=== PATIENT | female | born 1975 | race Hispanic/Latino ===

== ENCOUNTER 2020-07-06 12:22 | Emergency (ER) | payer OTHER ==
--- NOTE | 2020-07-06 13:37 | Event Note ---
ED Screening Note Date of service: 07/06/20 Time: 13:34 ED Screening Note: 44-year-old female presents to the ER today with complaints of left flank/left abdominal pain which radiates into her chest arms and legs. Onset 10 AM this morning with associated nausea vomiting and urinary frequency. This initial assessment/diagnostic orders/clinical plan/treatment(s) is/are subject to change based on patients health status, clinical progression and re- assessment by fellow clinical providers in the ED. Further treatment and workup at subsequent clinical providers discretion. Patient/guardian urged not to elope from the ED as their condition may be serious if not clinically assessed and managed. Initial orders include: Labs/x-ray/EKG
[2020-07-06 14:46] LABS: Basophils % (Auto) 0.3 % (0.0-1.8); Eosinophils % (Auto) 0.3 % (0.0-4.3); Hemoglobin 7.7 gm/dl (10.1-14.3); Lymphocytes % (Auto) 7.3 % (13.4-35.0); Mean Corpuscular HGB Conc 31 % (30-34); Mean Corpuscular Volume 76 fl (79-97); Monocytes # (Auto) 0.6 K/mm3 (0.0-0.8); Monocytes % (Auto) 4.2 % (0.0-7.3); Platelet Count 310 K/mm3 (140-440); Red Blood Count 3.29 M/mm3 (3.65-5.03)
[2020-07-06 14:52] LABS: Alanine Aminotransferase 14 units/L (7-56); Albumin 2.8 g/dL (3.9-5); Blood Urea Nitrogen 7 mg/dL (7-17); Calcium 7.5 mg/dL (8.4-10.2); Hemolysis Index 0
[2020-07-06 14:53] LABS: BUN/Creatinine Ratio 14
[2020-07-06 15:05] LABS: Red Cell Distribution Width 20.1 % (13.2-15.2)
--- NOTE | 2020-07-06 15:15 | XRay Report ---
XR chest routine 2V INDICATION / CLINICAL INFORMATION: Chest Pain. COMPARISON: None available. FINDINGS: SUPPORT DEVICES: None. HEART /PULMONARY VASCULATURE: Cardiac silhouette is enlarged without significant pulmonary vasculatur e congestion. LUNGS / PLEURA: No significant pulmonary or pleural abnormality. No pneumothorax. ADDITIONAL FINDINGS: No significant additional findings. IMPRESSION: Mild cardiac enlargement without overt failure or other acute chest process. Signer Name: Solomon Gordon MD Signed: 07/06/2020 3:11 PM Workstation Name: [id number]
[2020-07-06 17:16] LABS: Bacteria,Urine 1+ /HPF (Negative); Bilirubin,Urine NEG (Negative); Blood,Urine MOD (Negative); Color,Urine Yellow (Yellow); Mucus,Urine FEW /HPF; Protein,Urine <15 mg/dL mg/dL (Negative); Urobilinogen,Urine < 2.0 mg/dL (<2.0)
[2020-07-06 17:23] LABS: Amphetamine Screen,Urine Negative; Benzodiazepines Screen,Urine Negative; Cocaine Screen,Urine Negative; Methadone Screen,Urine Negative; Opiate Screen,Urine Negative
[2020-07-06 17:35] LABS: Cannabinoid Screen,Urine Positive
[2020-07-06] MEDS ORDERED: SODIUM CHLORIDE 0.9% 1000 ML 1,000 ML IV ONE (18:11)
[2020-07-06] MEDS ORDERED: HYOSCYAMINE SUBL 0.125 MG TAB SL ONE (18:12)
--- NOTE | 2020-07-06 18:21 | Emergency Department Report ---
ED Abdominal Pain HPI - General Chief Complaint: Chest Pain Stated Complaint: CHEST PAIN/VOMITING PUI?: Yes Time Seen by Provider: 07/06/20 18:10 Source: patient Mode of arrival: Ambulatory Limitations: No Limitations - History of Present Illness Initial Comments: 44-year-old obese female presents emerged department complaining of pain to the left flank region associated with nausea and and vomiting cyclic episodes of an unknown etiology. She does admit to cannabis usage but is not feel it is is related to her symptoms. She reports no known sick contacts no palliative or provocative factors no association with food was travel. She reports no hemoptysis no hematemesis hematochezia. Pain is dull crampy and th robbing. MD Complaint: abdominal pain -: Gradual Location: LUQ, L flank Radiation: none Quality: cramping, aching Consistency: constant Associated Symptoms: nausea, vomiting (Several vomiting episodes since starting this morning spontaneously). denies: diarrhea, fever, chills, constipation, dysuria, hematemesis, hematochezia, melena, hematuria, anorexia, syncope - Related Data Previous Rx's Medication Instructions Recorded Last Taken Type Hyoscyamine Subl [Levsin Sl 0.125 0.25 mg SL ONCE #20 tablet 07/06/20 Unknown Rx TAB] Ondansetron [Zofran Odt] 4 mg PO Q8HR #20 tab.rapdis 07/06/20 Unknown Rx Ketorolac [Toradol] 10 mg PO Q6H PRN #20 tablet 07/07/20 Unknown Rx Sulfamethoxazole/Trimethoprim 1 each PO BID #14 tablet 07/07/20 Unknown Rx [Bactrim DS TAB] Tamsulosin [Flomax] 0.4 mg PO QDAY #7 cap 07/07/20 Unknown Rx Allergies Allergy/AdvReac Type Severity Reaction Status Date / Time morphine Allergy Unknown Verified 07/06/20 13:06 ED Review of Systems ROS: Stated complaint: CHEST PAIN/VOMITING Other details as noted in HPI Comment: All other systems reviewed and negative ED Past Medical Hx - Past Medical History Previous Medical History?: No - Surgical History Past Surgical History?: No - Medications Home Medications: Home Medications Medication Instructions Recorded Confirmed Last Taken Type Hyoscyamine Subl [Levsin Sl 0.125 0.25 mg SL ONCE #20 tablet 07/06/20 Unknown Rx TAB] Ondansetron [Zofran Odt] 4 mg PO Q8HR #20 tab.rapdis 07/06/20 Unknown Rx Ketorolac [Toradol] 10 mg PO Q6H PRN #20 tablet 07/07/20 Unknown Rx Sulfamethoxazole/Trimethoprim 1 each PO BID #14 tablet 07/07/20 Unknown Rx [Bactrim DS TAB] Tamsulosin [Flomax] 0.4 mg PO QDAY #7 cap 07/07/20 Unknown Rx ED Physical Exam - General Limitations: No Limitations General appearance: alert, in no apparent distress - Head Head exam: Present: atraumatic, normocephalic - Eye Eye exam: Present: normal appearance, PERRL, EOMI Pupils: Present: normal accommodation - ENT ENT exam: Present: normal exam, normal orophraynx, mucous membranes moist - Neck Neck exam: Present: normal inspection, full ROM - Respiratory Respiratory exam: Present: normal lung sounds bilaterally. Absent: respiratory distress - Cardiovascular Cardiovascular Exam: Present: regular rate, normal rhythm. Absent: bradycardia, tachycardia, systolic murmur, diastolic murmur, rubs, gallop - GI/Abdominal GI/Abdominal exam: Present: soft, tenderness (For the left upper quadrant left flank), normal bowel sounds. Absent: guarding, hyperactive bowel sounds, hypoactive bowel sounds, organomegaly - Extremities Exam Extremities exam: Present: normal inspection - Back Exam Back exam: Present: normal inspection - Neurological Exam Neurological exam: Present: alert, oriented X3 - Psychiatric Psychiatric exam: Present: normal affect, normal mood - Skin Skin exam: Present: warm, dry, intact, normal color. Absent: rash ED Course Vital Signs 07/06/20 07/06/20 07/07/20 13:09 22:22 01:05 Temperature 97.6 F Pulse Rate 69 72 Respiratory 22 16 Rate Blood Pressure 133/59 Blood Pressure 195/114 111/58 [Left] O2 Sat by Pulse 100 100 Oximetry ED Medical Decision Making - Lab Data Result diagrams: 07/06/20 13:41 07/06/20 13:41 Critical care attestation.: If time is entered above; I have spent that time in minutes in the direct care of this critically ill patient, excluding procedure time. ED Disposition Clinical Impression: Chest pain, Cannabinoid hyperemesis syndrome, Renal and ureteric calculus Disposition: -01 TO HOME OR SELFCARE Is pt being admited?: No Does the pt Need Aspirin: No Condition: Stable Instructions: Cannabis Use Disorder, Kidney Stones, Mcmx-uo-Lkic, Nonspecific Chest Pain, Adult, Lithotripsy, Laser Therapy for Kidney Stones Additional Instructions: What is cannabis hyperemesis syndrome? CHS is caused by cannabis use. Its characterized by: recurrent vomiting nausea abdominal pain Compulsive bathing or showering in hot water to soothe nausea is also a hallmark sign of CHS. CHS is a newly discovered condition. It wasnt described in scientific literature until 2004. But a 2019 study concluded that it potentially accounts for up to 6 percent of emergency room visits for recurrent vomiting. Research suggests that CHS is a permanent condition that can only be effectively treated by quitting cannabis. Continuing to use cannabis despite CHS can lead to potentially life threatening complications. What causes cannabis hyperemesis syndrome? Regular, long-term cannabis use is the only known cause of CHS. A 2017 review of studies found that 97.4 percent of people who developed CHS reported using cannabis at least weekly. About 75 percent reported using cannabis regularly for over a year. Its thought that genetics may play a role because only a small number of people who regularly use cannabis develop CHS. One theory behind CHS is that chronic overstimulation of the bodys endocannabinoid receptors leads to your body not being able to control nausea and vomiting. ADVERTISEMENT What are the symptoms of cannabis hyperemesis syndrome? CHS is divided into three phases depending on the symptoms. Prodromal phase The prodromal phase can last for months, or even years in some cases. Symptoms are most common in early middle-aged adults who have used cannabis regularly since adolescence. Symptoms can include: abdominal discomfort fear of vomiting chief passenger ship steward/stewardess nausea Vomiting is absent in this stage. Hyperemetic phase The hyperemetic phase is characterized by reoccurring and often overwhelming nausea and vomiting. Other symptoms can include: dry heaving decreased food intake food aversions anxiety white, watery secretions in vomit from lack of solid food abdominal pain weight loss dehydration compulsive bathing with hot water to ease symptoms Recovery phase After stopping cannabis use, symptoms generally resolve within days or months. Reusing cannabis again often leads to a reoccurrence of CHS. How common is cannabis hyperemesis syndrome? Its still widely unknown how common CHS is or why it only develops in some people. Many researchers feel that CHS is underrecognized and underdiagnosed. Symptoms of CHS can resemble those of other conditions, such as cyclic vomiting syndrome. Cannabis is still illegal in many states and countries, so people in these areas may be hesitant to tell their doctor about their cannabis use. Estimated impact In one 2018 study, a group of researchers surveyed 2,127 [place] adults between the ages of 18 and 49 at an emergency department in [place]. Of those surveyed, 155 met the criteria of smoking cannabis at least 20 days per month. The researchers found that 32.9 percent of the participants reported having experienced symptoms of CHS in the past. Using these results, researchers estimated that approximately 2.75 million [place] adults may deal with CHS each year. However, much more research needs to be done to fully understand how often CHS occurs. How is cannabis hyperemesis syndrome treated? Researchers are continuing to examine potential treatment options for CHS. As of now, there are no standard treatment guidelines. Stopping cannabis use is the only known way to permanently get rid of CHS. Symptoms may persist 10 days or more after quitting. Relief from symptoms Many people experience temporary relief from their nausea and vomiting when bathing in hot water. Some people with CHS may compulsively bathe in hot water for hours a day to find relief. Your doctor may recommend a number of other treatments to alleviate your symptoms along with quitting cannabis, such as: Capsaicin cream. A few small case studies found that topical capsaicin may help manage symptoms. Antipsychotics. Antipsychotic medications, such as haloperidol or olanzapine, have provided people relief in some studies. Antihistamines. Benadryl and other antihistamines may be somewhat effective, but research is mixed. Intravenous (IV) solutions. If you become severely dehydrated or cant handle oral fluid, you may need IV hydration. Pain-relieving medications. If your symptoms are accompanied by abdominal pain, your doctor may prescribe or recommend pain-relieving medication. Keep in mind none of these treatments will be effective if you continue using cannabis products. ADVERTISEMENT What happens if cannabis hyperemesis syndrome is left untreated? More research needs to be done to understand the long-term effects of CHS. However, chronic vomiting caused by CHS can lead to a number of potentially serious complications, such as: dehydration tooth decay malnutrition electrolyte imbalances esophagus inflammation (esophagitis) Sharon-Henson syndrome CHS-related deaths A 2016 case study describes two deaths due to complications of CHS. The cause of in both people was found to be hyponatremic dehydration, also known as low sodium levels. Can CBD products without THC cause cannabis hyperemesis syndrome? Even cannabis products that dont contain THC have the potential to cause or worsen CHS. Its still not clear which of the more than 100 cannabinoids found in cannabis are responsible for CHS, but its thought that CBD could potentially be a contributor. Until theres more research, CBD shouldnt be considered safe for people with CHS. Takeaway CHS is a condition caused by chronic and repeated cannabis use that leads to severe nausea and vomiting. Theres still a lot about this condition that researchers dont know, including how common it is and why it occurs in some people but not others. At this time, the only known way to cure CHS is by quitting cannabis Prescriptions: Sulfamethoxazole/Trimethoprim [Bactrim DS TAB] 1 each PO BID #14 tablet Tamsulosin [Flomax] 0.4 mg PO QDAY #7 cap Hyoscyamine Subl [Levsin Sl 0.125 TAB] 0.25 mg SL ONCE #20 tablet Ketorolac [Toradol] 10 mg PO Q6H PRN #20 tablet PRN Reason: Pain Ondansetron [Zofran Odt] 4 mg PO Q8HR #20 tab.rapdis Referrals: PRIMARY CAREMD [Primary Care Provider] - 3-5 Days OSMAR WOMACK MD [Staff Physician] - 3-5 Days
[2020-07-06] MEDS: ONDANSETRON 4 MG/2 ML INJ IV STA ×2 (18:42→20:31)
--- NOTE | 2020-07-06 18:53 | Cat Scan Report ---
CT ABDOMEN AND PELVIS WITH CONTRAST INDICATION / CLINICAL INFORMATION: Pain TECHNIQUE: Axial CT images were obtained through the abdomen and pelvis after IV contrast. All CT sc ans at this location are performed using CT dose reduction for ALARA by means of automated exposure c ontrol. COMPARISON: None available. FINDINGS: LOWER CHEST: No significant abnormality LIVER: No significant abnormality GALLBLADDER/BILIARY TREE: Cholecystectomy. PANCREAS: No significant abnormality SPLEEN: No significant abnormality ADRENALS: No significant abnormality KIDNEYS / URETER: 1.1 cm calcification is present at the left UPJ with mild left hydronephrosis, rela tively delayed enhancement of the left kidney, and left perinephric stranding. Bilateral renal cysts. No solid renal mass. URINARY BLADDER: Bladder is decompressed, limiting further evaluation. REPRODUCTIVE ORGANS: No significant abnormality STOMACH / SMALL BOWEL: Stomach and small bowel are normal in caliber. No evidence of bowel inflammati on. COLON: The colon is unremarkable. The appendix is normal in caliber. LYMPH NODES: No significant adenopathy. VASCULATURE: No significant abnormality. OTHER: No free air, free fluid, or focal fluid collection is identified. 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 No acute process. IMPRESSION: 1. 1.1 cm left UPJ calculus with mild/moderate obstructive uropathy. 2. Other incidental findings as above. Signer Name: Solomon Gordon MD Signed: 07/06/2020 6:48 PM Workstation Name: [id number]
[2020-07-06] MEDS ORDERED: KETOROLAC 30 MG/1 ML INJ IV STA (20:20)
[2020-07-06] MEDS ORDERED: ONDANSETRON 4 MG/2 ML INJ ONE (20:21)
[2020-07-06] MEDS ORDERED: KETOROLAC 30 MG/1 ML INJ ONE (20:21)
[2020-07-06] MEDS ORDERED: ONDANSETRON 4 MG/2 ML INJ IV ONE (20:30)
[2020-07-07] MEDS ORDERED: fentaNYL 100 MCG/2 ML INJ IV ONE (00:28)
[2020-07-07 01:38] VITALS: BP 111/58
--- NOTE | 2020-07-07 10:15 | Electrocardiograph Report ---
[facility] Test Date: 2020-07-06 Test Time: 13:13:55 Pat Name: JOHNSON OBRIEN Department: Room: Gender: F Mortgage Loan Originator: MITZI : 1975 Requested By: MARY LOU SILVA Order Number: [id number] Reading MD: Tomas Hess Measurements Intervals [place] Rate: 58 P: 40 WA: 185 QRS: -16 QRSD: 103 T: 2 QT: 467 QTc: 460 Interpretive Statements Sinus bradycardia No previous ECG available for comparison Electronically Signed On 07-07-2020 10:14:53 EDT by Tomas Hess
== END 2020-07-07 01:05 | disposition home or self-care (01) ==
LOC: ED 12:22
DX: R10.12 Left upper quadrant pain (principal); R11.2 Nausea with vomiting, unspecified; Z88.8 Allergy status to other drugs, medicaments and biological substances
CPT/HCPCS: 36415; 71046; 74177; 80053; 80307; 81001; 83690; 84484; 84703; 85025; 93005; 96361; 96374; 96375; 99284; J1885; J2405; J3010; J7030; Q9967